=== PATIENT | female | born 1950 | race Hispanic/Latino ===

== ENCOUNTER → 2019-02-25 | Outpatient (CLI) | payer OTHER | END | disposition home or self-care (01) | LOC: RAH 09:11 | PROVIDERS: ATTEND Internal Medicine Cardiovascular Disease | DX: I73.9 Peripheral vascular disease, unspecified (principal); M79.661 Pain in right lower leg | CPT/HCPCS: 93922 ==

== ENCOUNTER → 2023-07-22 | Outpatient (CLI) | payer MEDICARE | END | disposition home or self-care (01) | LOC: RAH 08:21 | PROVIDERS: ATTEND Internal Medicine Gastroenterology | DX: R13.12 Dysphagia, oropharyngeal phase (principal); R63.30 Feeding difficulties, unspecified | CPT/HCPCS: 74230; 92611 ==

== ENCOUNTER → 2023-12-23 | Outpatient (CLI) | payer MEDICARE | END | disposition home or self-care (01) | LOC: RAH 08:19 | PROVIDERS: ATTEND Pediatrics | DX: K44.9 Diaphragmatic hernia without obstruction or gangrene (principal) | CPT/HCPCS: 74240 ==

== ENCOUNTER 2024-02-22 08:00 | Inpatient (IN) | payer MEDICARE ==
[~2024-02-22] VITALS: Ht 160 cm; Wt 77.7 kg
[2024-02-22 11:25] VITALS: BP 170/66; PULSE 60; RESP 18; TEMP 97.7
[2024-02-22 11:35] LABS: BASOPHILS # (AUTO) 0.04 K/uL (0.00-0.20); BASOPHILS % (AUTO) 0.8 % (0.0-5.0); EOSINOPHILS # (AUTO) 0.07 K/uL (0.00-0.70); EOSINOPHILS % (AUTO) 1.3 % (0.0-8.0); HEMATOCRIT 36.9 % (36-48); IMMATURE GRANULOCYTE ABSOLUTE 0.01 K/uL (0-1); LYMPHOCYTES # (AUTO) 1.3 K/uL (1.0-4.8); LYMPHOCYTES % (AUTO) 25.6 % (21.0-51.0); MEAN CORPUSCULAR HGB CONC 32.8 g/dL (32.0-36.0); MEAN CORPUSCULAR VOLUME 91.3 fL (79-99); MONOCYTES # (AUTO) 0.3 K/uL (0.1-1.0); MONOCYTES % (AUTO) 6.5 % (3.0-13.0); NEUTROPHILS # (AUTO) 3.4 K/uL (1.8-7.7); NEUTROPHILS % (AUTO) 65.6 % (40.0-77.0); PLATELET COUNT (AUTO) 229 K/uL (130-400); RED BLOOD CELL COUNT(AUTO) 4.04 MIL/uL (4.00-5.50); RED CELL DISTRIBUTION WIDTH 13.2 % (11.0-15.5); WHITE BLOOD COUNT (AUTO) 5.2 K/uL (4.8-10.8)
[2024-02-22 12:14] LABS: POTASSIUM 4.1 mmol/L (3.5-5.1)
[2024-02-22 12:22] LABS: INR 0.97 (0.85-1.15); PROTHROMBIN TIME 10.9 SEC (9.6-11.6)
[2024-02-22 12:24] LABS: PARTIAL THROMBOPLASTIN TIME 27.8 SEC (26.3-35.5)
[2024-02-22] MEDS ORDERED: CRANBERRY PO (12:32)
[2024-02-22] MEDS ORDERED: FAMO20TA8 PO (12:32)
[2024-02-22] MEDS ORDERED: [UNRECOGNIZED DRUG - OTHER] PO (12:32)
[2024-02-22] MEDS ORDERED: LIDOCAINE TP (12:32)
[2024-02-22] MEDS ORDERED: VIT C PO (12:32)
[2024-02-22] MEDS ORDERED: PRILOCAINE TP (12:32)
[2024-02-22] MEDS ORDERED: prebiotic/probiotic PO (12:32)
[2024-02-22] MEDS ORDERED: AZEL23SP2 EN (12:32)
[2024-02-22] MEDS ORDERED: ESTR30GE2 VG (12:32)
[2024-02-22] MEDS ORDERED: METH1TAB30 PO (12:32)
[2024-02-22] MEDS ORDERED: vit c PO (12:32)
[2024-02-22] MEDS ORDERED: ROSU20TA98 PO (12:32)
[2024-02-25] VITALS (25 sets, daily range): BP systolic 96–159; BP diastolic 42–68; PULSE 55–87; RESP 13–18; TEMP 97.1–98.2
[2024-02-25] MEDS: LACTATED RINGERS 1000ML 1,000 ML IV ONE (07:29)
[2024-02-25] MEDS: ceFAZolin SODIUM 2 GM VIAL ONE (07:29)
[2024-02-25] MEDS ORDERED: proPOFol 10 MG/ML 20ML VIAL IV ONE (08:29)
[2024-02-25] MEDS ORDERED: FENTanyl CITRate PF 50 MCG/1 ML 2ML VIAL ONE (08:29)
[2024-02-25] MEDS ORDERED: LIDOCAINE PF 100MG/5ML (2%) SYRINGE 5ML ONE (08:29)
[2024-02-25] MEDS ORDERED: rocuRONium bROMide 10MG/1ML 5ML VL ONE (08:29)
[2024-02-25] MEDS: acetaMINOPHEN 100 ML ONE (09:10)
[2024-02-25] MEDS ORDERED: MIDAZOLAM HCL 1 MG/ML 2ML VIAL ONE (09:22)
[2024-02-25] MEDS: FAMOTIDINE 20MG VIAL IV ONE (10:00)
[2024-02-25] MEDS: BUPIvacaine/PF 0.5% 30ML VIAL ONE (10:00)
[2024-02-25] MEDS ORDERED: ePHEDrine SULFate 50 MG/ML AMPULE ONE (10:17)
[2024-02-25] MEDS ORDERED: dexaMETHasone SOD PHOSPHATE 10MG/ML 1ML VIAL ONE (10:24)
[2024-02-25] MEDS ORDERED: ondanSETRON 4MG INJ ONE (10:25)
[2024-02-25] MEDS ORDERED: NEOSTIGMINE METHYLSULFATE 1MG/ML IV ONE (11:35)
[2024-02-25] MEDS ORDERED: PROCHLORPERAZINE 10MG/2ML INJ IV PRN (13:00)
[2024-02-25] MEDS ORDERED: ketOROlac 15MG/ML VIAL (15MG/ML) IV PRN (13:00)
[2024-02-25] MEDS ORDERED: ondanSETRON 4MG INJ IVP PRN (13:00)
[2024-02-25] MEDS ORDERED: hydroMORPHone 0.5 MG SYG (0.5MG/0.5ML) IVP PRN (13:00)
[2024-02-25] MEDS ORDERED: HYDROcod/acetaMINOPHEN 7.5/325 MG 15 ML UDCUP PO PRN (13:00)
[2024-02-25] MEDS: metoCLOPRAmide 10 MG/2 ML VIAL ONE (14:37)
[2024-02-25] MEDS: PROMETHAZINE HCL 25 MG/ML 1ML AMPULE IM ONE (14:37)
[2024-02-25] MEDS: LACTATED RINGERS 1000ML 1,000 ML IV SCH (14:37)
--- NOTE | 2024-02-25 14:44 | OP ---
Operative Note: DATE OF PROCEDURE: 02/25/24 SURGEON: ANTWON VARGAS MD HYDROLOGIC MODELER: [Please review operative record] ANESTHESIA: [General and local] ANESTHESIOLOGIST/BLANKET CUTTER HAND: [Please review operative record] PREOPERATIVE DIAGNOSIS: [Diaphragmatic hernia] POSTOPERATIVE DIAGNOSIS: [Same] SYNOPSIS: [3 cm diaphragmatic hernia containing incarcerated cardia and fundus. Successfully reduced, primary repair. Reinforced with mesh. Anterior partial fundoplication performed.] PROCEDURE: [Robotic assisted laparoscopic hiatal hernia repair, mesh reinforcement, intraoperative EGD, partial anterior fundoplication] ESTIMATED BLOOD LOSS: [30 cc] INDICATIONS: [Patient is a 74-year-old female with chronic heartburn and dysphagia. Found to have a small hiatal hernia on endoscopy with reflux changes on the esophagus consistent with gastroesophageal reflux disease. Upper GI performed with normal esophageal motility. Patient failed medical therapy with H2 blockers. Recommendation was given for hiatal hernia repair with mesh and anterior fundoplication. Risks, benefits, alternatives were discussed with the patient. All questions were answered. Patient agreed to proceed with surgical procedure.] DESCRIPTION OF PROCEDURE: [After appropriate consent was obtained, the patient was transferred to the operating room and placed in supine position on the operating table. SCDs were placed, preop antibiotics were given. Patient underwent induction of general anesthesia, endotracheal intubation. Patient was then prepped and draped in usual sterile fashion. Time-out was performed. Through a left subcostal incision, Veress needle was inserted into the peritoneal cavity. Insufflation was allowed to 12 mmHg. Through an 8 mm supraumbilical incision, 8 mm trocar and laparoscope were inserted into the peritoneal cavity using Optiview. Rest of my trocars were all placed under direct visualization. Patient was positioned in the reverse Trendelenburg at 20. Through a 5 mm incision, snake liver retractor was placed in order to retract the left lobe of the liver anteriorly. The Gil robot was docked. Upon evaluation of the diaphragmatic hiatus, there was 3 cm diaphragmatic defect containing incarcerated cardia and fundus. We 1st reduced the contents by applying traction. A few adhesive bands were divided using vessel sealer. Once fully reduced, we then focused on the diaphragmatic repair. Our dissection began by incising the peritoneum around the hiatal orifice in a avascular plane. This was performed using the vessel sealer. The right jose was identified and a plane was developed between the right jose in the right esophageal wall. The dissection was accomplished with a combination of both blunt dissection and vessel sealer dissection. On the posterior aspect of the esophageal wall, the left jose was identified and this dissection was followed towards the left jose. A few short gastrics were divided in order to fully mobilize the fundus. Once the esophagus was fully mobilized, we focused in the intra mediastinal esophageal dissection. Again this was mostly accomplished mostly with blunt and very little vessel sealer dissection. We were able to get GE junction 3 cm below the diaphragmatic hiatus. We then passed our endoscope through the mouth into the esophagus and into the stomach. With the endoscope in place, we then proceeded to perform our cruroplasty. T his was achieved by approximating the left and right jose in the posterior aspect of the esophagus using two 0 V lock nonabsorbable suture in a running fashion. We also performed a anterior crural plasty using also two 0 V lock nonabsorbable suture. At the end of the crural plasty, the stomach was assessed for the returned to the peritoneal cavity and only one instrument was able to maneuver into the hiatus. We reinforced the repair using a [address] mesh in a horseshoe shape. This mesh was sutured in place using 3-0 V lock absorbable suture in a running fashion in a couple of 2-0 silk interrupted sutures. At this time we focused on creating our anterior fundoplication. The fundus was grasped from the left side and moved to the right side anteriorly to the esophagus. It was sutured to the diaphragmatic wall using 2-0 silk suture in a running fashion. Endoscopy with insufflation revealed no air leak, no stenosis through the GE junction, appropriate reduction of the hiatal hernia. At this time are hiatal hernia repair was completed. The Gil robot was undocked. Final inspection revealed adequate hemostasis, no concerns for leakage. The abdomen was deflated, all instruments were removed. Counts were correct at the end of the case. Skin incisions were closed with 4-0 Monocryl suture. Dermabond was applied over the incisions. Patient tolerated the procedure well] ANTWON VARGAS MD Feb 25, 2024 14:44
[2024-02-26] VITALS: BP 154/68; PULSE 59; RESP 20; TEMP 98
[2024-02-26 04:00] VITALS: BP 146/57; PULSE 58; RESP 18; TEMP 98.4
[2024-02-26 08:00] VITALS: BP 154/67; PULSE 60; RESP 16; TEMP 97.9; O2SAT 97
[2024-02-26] MEDS: ENOXAPARIN SODIUM 40 MG/0.4 ML SYRINGE SQ SCH (09:54)
--- NOTE | 2024-02-26 11:25 | NUR ---
DCP CM MET WITH PT ASSESSMENT DONE. PATIENT IS INDEPENDENT PRIOR TO SURGERY, LIVES AT HOME WITH , SON LIVES CLOSE BY. DENIES ANY EQUIPMENT/SERVICES. FEELS SAFE TO GO BACK HOME, FAMILY ABLE TO ASSIST WITH TRANSPORTATION AND NEEDS NECESSARY. PT USES [facility] IN [place] FOR MEDS. DCP HOME ONCE STABLE. CM TO CONTINUE TO FOLLOW UP. Addendum: 02/26/24 at 1126 by MARIBEL MACIAS LVN CM Amended: Links added.
[2024-02-26 12:00] VITALS: BP 149/61; PULSE 57; RESP 16; TEMP 98.1
--- NOTE | 2024-02-26 15:49 | NUR ---
note summary/dc patient alert x4 patient was dc'd by dr ewing today, i explained to patient to follow up with dr ewing as scheduled i provided patient with abdominal binder to take home patient tolerated diet, had bm, ambulated well, and pain is tolerable, patient was taken via wheelchair by yue lewis, no complications
== END 2024-02-26 14:45 | disposition home or self-care (01) | DRG 328 ==
LOC: DAHIP 02-25 07:03 → EDSTATUS 02-25 10:32 → 4AH 02-25 13:00
PROVIDERS: ADMIT Surgery; ATTEND Surgery
PROC: 8E0W4CZ Robotic Assisted Procedure of Trunk Region, Percutaneous Endoscopic Approach (ICD-10-PCS; 2024-02-25)
PROC: 0DJ08ZZ Inspection of Upper Intestinal Tract, Via Natural or Artificial Opening Endoscopic (ICD-10-PCS; principal; 2024-02-25 09:30)
PROC: 0BUT4JZ Supplement Diaphragm with Synthetic Substitute, Percutaneous Endoscopic Approach (ICD-10-PCS; 2024-02-25 09:30)
PROC: 0DV44ZZ Restriction of Esophagogastric Junction, Percutaneous Endoscopic Approach (ICD-10-PCS; 2024-02-25 09:30)
DX: K44.9 Diaphragmatic hernia without obstruction or gangrene (principal); K21.9 Gastro-esophageal reflux disease without esophagitis
CPT/HCPCS: 36415; 43235; 80048; 85025; 85610; 85730; 86850; 86900; 86901; G0378; J1100; J1650; J2003; J2250; J2405; J2550; J2704; J2710; J2765; J3010; J3490; J7120; A4213; A4215; A4216; A4221; A4222; A4223; A4600; A4663; A4930; A6260; C1781; J0665; J0690